=== PATIENT | male | born 1955 | race Caucasian/White ===

== ENCOUNTER 2017-10-23 10:04 | Day surgery (SDC) | payer BC ==
[~2017-10-23] VITALS: Ht 175.3 cm; Wt 71.2 kg
[~2017-10-23 10:04] MED LIST: BUPIVACAINE/PF-EPI 0.5% 1:200K ONE; FENTANYL PF 250 MCG/5ML ONE; IBUP-1223 PO; LIDOCAINE 1%-EPI 1:100K, 30ML ONE; MIDAZOLAM 1 MG/ML, 2ML ONE; ZOLM2.5T7 PO
[2017-10-23 10:29] VITALS: BP 110/75
[2017-10-23] MEDS ORDERED: IBUPROFEN 800 MG TABLET PO PRN (12:00)
[2017-10-23] MEDS ORDERED: ZOLMITRIPTAN 2.5 MG TABLET PO PRN (12:00)
[2017-10-23] MEDS ORDERED: ACETAMINOPHEN 325 MG TABLET PO PRN (12:30)
[2017-10-23] MEDS ORDERED: LABETALOL 5MG/ML, 20ML IV PRN (12:30)
[2017-10-23] MEDS ORDERED: OXYcodone 5 MG/5 ML ORAL.SOL UDC PO PRN (12:30)
[2017-10-23] MEDS ORDERED: ONDANSETRON 2MG/ML, 2ML IV PRN (12:30)
[2017-10-23] MEDS ORDERED: OXYcodone 5 MG/5 ML ORAL.SOL UDC ONE ×2 (14:02)
[2017-10-23] MEDS ORDERED: CEFAZOLIN 1,000 MG ONE (15:21)
[2017-10-23] MEDS ORDERED: SUCCINYLCHOLINE 20 MG/ML, 10ML ONE (15:21)
[2017-10-23] MEDS ORDERED: ONDANSETRON 2MG/ML, 2ML ONE (15:21)
[2017-10-23] MEDS ORDERED: DEXAMETHASONE 4 MG/ML, 5ML ONE (15:21)
[2017-10-23] MEDS ORDERED: PROPOFOL 10 MG/ML, 20ML ONE (15:21)
== END 2017-10-23 16:45 ==
LOC: OUT 10:04
PROVIDERS: ATTEND Orthopaedic Surgery
DX: S43.431A Superior glenoid labrum lesion of right shoulder, initial encounter (principal); S46.111A Strain of muscle, fascia and tendon of long head of biceps, right arm, initial encounter; S46.011A Strain of muscle(s) and tendon(s) of the rotator cuff of right shoulder, initial encounter; M19.011 Primary osteoarthritis, right shoulder; M65.811 Other synovitis and tenosynovitis, right shoulder; M75.41 Impingement syndrome of right shoulder; M75.21 Bicipital tendinitis, right shoulder; X58.XXXA Exposure to other specified factors, initial encounter; Y93.89 Activity, other specified; Y92.89 Other specified places as the place of occurrence of the external cause; Y99.8 Other external cause status
CPT/HCPCS: 29823; 29824; 29826; 29827; 29999; 64415; C1713; J0330; J0690; J1100; J2250; J2405; J2704; J3010; J3490